=== PATIENT | female | born 1990 | race Caucasian/White ===

== ENCOUNTER → 2019-11-23 14:08 | Outpatient (BNVA) | payer MEDICAID, SELFPAY | PROVIDERS: Referring Provider Nurse Practitioner Family; Visit Provider Podiatrist Foot & Ankle Surgery | DX: M79.671 Pain in right foot (principal); M67.471 Ganglion, right ankle and foot | CPT/HCPCS: 73650 ==

== ENCOUNTER → 2019-11-30 09:45 | Outpatient (BNVA) | payer MEDICAID, SELFPAY | PROVIDERS: Visit Provider Nurse Practitioner Women's Health | DX: R30.0 Dysuria (principal); Z12.4 Encounter for screening for malignant neoplasm of cervix; R10.2 Pelvic and perineal pain | CPT/HCPCS: 81000; 81025; 86592; 86803; 87340; 87491; 87591; 87661; 87806; 88175 ==

== ENCOUNTER 2020-12-04 14:37 | Outpatient (CLI) | payer MEDICAID, SELFPAY | END 2020-12-04 14:38 | disposition home or self-care (01) | LOC: SPT 14:37 | PROVIDERS: Visit Provider Podiatrist Foot & Ankle Surgery | DX: Z46.89 Encounter for fitting and adjustment of other specified devices (principal); M72.2 Plantar fascial fibromatosis; G57.61 Lesion of plantar nerve, right lower limb | CPT/HCPCS: 73630; 97760; L4397 ==

== ENCOUNTER → 2021-06-22 11:07 | Outpatient (BNVA) | payer MEDICAID, SELFPAY | PROVIDERS: Visit Provider Nurse Practitioner Women's Health | DX: R35.0 Frequency of micturition (principal) | CPT/HCPCS: 81000; 87086 ==

== ENCOUNTER 2021-07-12 15:41 | Outpatient (CLI) | payer MEDICAID, SELFPAY ==
--- NOTE | 2021-07-12 15:54 | MR_ITS ---
WS: [id number] MRI RIGHT FOOT without CONTRAST. COMPARISON: Radiographs 12/04/2020 Multiplanar, multisequence imaging is performed without contrast. Normal marrow signal. No edema. No stress fracture or erosions are identified. There is very slight n arrowing of the first metatarsophalangeal joint and mild hallux valgus. No flattening of the second m etatarsal head. Lisfranc ligament is normal. Normal calcaneus and talus. No soft tissue mass or signal change along the interdigital nerves. No significant edema or thickenin g. No Lambert's neuroma identified. No fibrosis. No fluid to suggest bursitis. No increased fluid within the tendon sheaths. Ligaments and tendons appear appropriate.The Achilles t endon is normal. Normal course of the peroneal tendons. MR/MR foot RT wo con* [id number] IMPRESSION: 1. No MRI evidence for stress fracture or prior injury. No marrow edema. 2. No MRI evidence for Lambert's seroma. No intertarsal fluid or bursitis.
== END 2021-07-12 15:42 | disposition home or self-care (01) ==
LOC: RAD 15:45
PROVIDERS: Visit Provider Podiatrist Foot & Ankle Surgery
DX: G57.61 Lesion of plantar nerve, right lower limb (principal)
CPT/HCPCS: 73718

== ENCOUNTER 2021-07-17 14:36 | Outpatient (CLI) | payer MEDICAID, SELFPAY | END 2021-07-17 14:37 | disposition home or self-care (01) | LOC: SPT 14:37 | PROVIDERS: Visit Provider Podiatrist Foot & Ankle Surgery | DX: Z46.89 Encounter for fitting and adjustment of other specified devices (principal); G57.61 Lesion of plantar nerve, right lower limb | CPT/HCPCS: 97760; L4397 ==

== ENCOUNTER → 2021-10-07 14:09 | Outpatient (BNVA) | payer MEDICAID, SELFPAY | PROVIDERS: Visit Provider Registered Nurse Neonatal Intensive Care | DX: R10.9 Unspecified abdominal pain (principal); N39.0 Urinary tract infection, site not specified | CPT/HCPCS: 81000 ==

== ENCOUNTER → 2022-01-09 15:40 | Outpatient (BNVA) | payer MEDICAID, SELFPAY | PROVIDERS: Visit Provider Nurse Practitioner Women's Health | DX: Z30.9 Encounter for contraceptive management, unspecified (principal); Z30.017 Encounter for initial prescription of implantable subdermal contraceptive | CPT/HCPCS: 81025 ==

== ENCOUNTER → 2022-12-11 14:40 | Outpatient (BNVA) | payer MEDICAID, SELFPAY | PROVIDERS: Visit Provider Nurse Practitioner Women's Health | DX: Z12.4 Encounter for screening for malignant neoplasm of cervix (principal); Z01.419 Encounter for gynecological examination (general) (routine) without abnormal findings; Z30.46 Encounter for surveillance of implantable subdermal contraceptive | CPT/HCPCS: 87624 ==